=== PATIENT | female | born 1980 | race Caucasian/White ===

== ENCOUNTER 2021-08-02 01:44 | Emergency (ER) | payer OTHER ==
[2021-08-02 03:56] LABS: BASOPHIL 1.1 % (0-2); EOSINOPHIL 1.1 % (0-5); HCT 33.5 % (37.0-47.0); HGB 10.3 g/dl (12.5-16.0); LYMPHOCYTE 15.3 % (15-48); MCH 25.1 pg (25.0-31.0); MCHC 30.7 g/dL (32.0-36.0); MCV 81.7 fL (78.0-100.0); MONOCYTE 4.4 % (0-12); NEUTROPHIL 77.7 % (41-80); NRBC 0; PLT 413 K/uL (150-400); RDW 17.2 % (11.5-14.0); WBC 8.4 K/uL (4.0-10.5)
[2021-08-02 04:17] LABS: ALBUMIN 3.8 g/dL (3.4-5.0); ALKALINE PHOSHATASE 79 U/L (46-116); ALT 70 U/L (14-59); AST 66 U/L (15-37); BILIRUBIN - TOTAL 0.2 mg/dL (0.2-1.0); BUN 9 mg/dL (7-18); BUN/CREAT RATIO (CALC) 12.5 RATIO; CHLORIDE 106 mmol/L (98-107); CO2 (BICARBONATE) 23 mmol/L (21-32); CREATININE 0.72 mg/dL (0.51-0.95); GLOBULIN (CALCULATION) 3.7 g/dL; GLUCOSE 90 mg/dL (74-106); POTASSIUM 3.5 mmol/L (3.5-5.1); TOTAL PROTEIN 7.5 g/dL (6.4-8.2)
[2021-08-02 04:19] LABS: ACETAMINOPHEN (TYLENOL) < 2.0 ug/mL (10.0-30.0)
== END 2021-08-02 09:37 | disposition left against medical advice (07) ==
LOC: FER 01:44
PROVIDERS: Emergency Medicine Emergency Medical Services
DX: T43.591A Poisoning by other antipsychotics and neuroleptics, accidental (unintentional), initial encounter (principal); F10.129 Alcohol abuse with intoxication, unspecified; Y90.8 Blood alcohol level of 240 mg/100 ml or more
CPT/HCPCS: 36415; 70450; 71045; 80053; 83735; 84703; 85025; 93005; G0480; J3475; J3480; J7030

== ENCOUNTER 2021-12-06 01:07 | Emergency (ER) | payer OTHER ==
[2021-12-06 02:12] LABS: BASOPHIL 1.3 % (0-2); EOSINOPHIL 1.6 % (0-5); HCT 34.5 % (37.0-47.0); HGB 10.7 g/dl (12.5-16.0); LYMPHOCYTE 38.9 % (15-48); MCH 25.1 pg (25.0-31.0); MPV 9.2 fL (6.0-9.5); NEUTROPHIL 47.9 % (41-80); NRBC 0; PLT 289 K/uL (150-400); RBC 4.26 M/uL (4.20-5.40); RDW 19.9 % (11.5-14.0); WBC 6.1 K/uL (4.0-10.5)
[2021-12-06 02:57] LABS: ALBUMIN 3.8 g/dL (3.4-5.0); BILIRUBIN - TOTAL 1.1 mg/dL (0.2-1.0); BUN/CREAT RATIO (CALC) 20.4 RATIO; CREATININE 0.54 mg/dL (0.51-0.95); GLOBULIN (CALCULATION) 3.8 g/dL; POTASSIUM 4.2 mmol/L (3.5-5.1); TOTAL PROTEIN 7.6 g/dL (6.4-8.2)
[2021-12-06] MEDS ORDERED: NORCO 5-325 TA1 EACH PO (03:54)
[2021-12-06] MEDS ORDERED: CYCLOBENZAPRINE10 MG PO (03:54)
[2021-12-06] MEDS ORDERED: NAPROXEN500 MG PO (03:54)
[2021-12-06] MEDS ORDERED: NORVASC 10MG TA10 MG PO (04:07)
== END 2021-12-06 04:14 | disposition home or self-care (01) ==
LOC: FER 01:07
PROVIDERS: Internal Medicine
DX: S00.03XA Contusion of scalp, initial encounter (principal); S00.83XA Contusion of other part of head, initial encounter; S30.0XXA Contusion of lower back and pelvis, initial encounter; H11.32 Conjunctival hemorrhage, left eye; S05.12XA Contusion of eyeball and orbital tissues, left eye, initial encounter; S70.11XA Contusion of right thigh, initial encounter; S80.02XA Contusion of left knee, initial encounter; S90.02XA Contusion of left ankle, initial encounter; S30.810A Abrasion of lower back and pelvis, initial encounter; T74.11XA Adult physical abuse, confirmed, initial encounter; Y04.0XXA Assault by unarmed brawl or fight, initial encounter; Y92.009 Unspecified place in unspecified non-institutional (private) residence as the place of occurrence of the external cause
CPT/HCPCS: 36415; 70450; 70486; 71250; 73564; 73610; 80053; 85025